=== PATIENT | male | born 1955 | race Caucasian/White ===

== ENCOUNTER 2019-11-19 10:44 | Emergency (ER) | payer MEDICARE, MEDICAID, SELFPAY ==
[2019-11-19 10:47] VITALS: PULSE 80; RESP 16; TEMP 36.4; O2SAT 95; BMI 26.6
--- NOTE | 2019-11-19 11:04 | CT_ITS ---
STUDY: CT ABDOMEN AND PELVIS WITHOUT CONTRAST REASON FOR EXAM: Male, 63 years old. DISTENTION, S/P PEG TUBE REPLACEMENT, PERSISTENT LEAK RADIATION DOSAGE (If Supplied By Facility): CTDIvol = ( 12.80 ) mGy, DLP = ( 662.89 ) mGycm TECHNIQUE: Transaxial images were obtained from the dome of the diaphragm to the symphysis pubis without oral contrast, and without intravenous contrast. Sagittal and coronal images were reconstructed. Individualized dose optimization techniques were used for this CT. COMPARISON: None. FINDINGS: There is evidence of a groundglass appearance in the right middle lobe as well as the lower lobes. Coronary artery calcification. Small amount of free intraperitoneal air most likely secondary to the recent insertion of the PEG tube. Normal liver. There is a solitary gallstone. Contracted gallbladder. Normal spleen. Normal pancreas. Normal bilateral adrenal glands. Normal right kidney. Multiple left intrarenal nonobstructive calculi. A PEG tube is seen entering the anterior portion of the body of the stomach. Increased markings are seen in the peritoneal fat adjacent to the entrance site of the PEG tube suggestive of a postprocedure changes most likely possible small amount of bleeding. Normal small intestine. Normal colon. The appendix is visualized and appears normal. There is diffuse atherosclerotic calcification of the abdominal aorta, without a demonstrated aneurysm. Normal inferior vena cava. Normal retroperitoneum. Diffuse bladder wall thickening. A 3 mm calculus is seen at the base of the bladder on the left side. This is suggestive of a recently passed left ureteral calculus. Normal abdominal wall. Dextroscoliosis CT/Abdomen/Pelvis without Cont IMPRESSION: Status post PEG insertion. Small amount of free air surrounding the liver in keeping with the recent placement of the PEG tube. Multiple left intrarenal calculi. 3 mm calculus at the base of the bladder on the left side suggestive of a recently passed left ureteral stone. Diffuse bladder wall thickening. Electronically Signed: Tonny Sim, at 12:13 EDT , Service support ,
--- NOTE | 2019-11-19 11:08 | ED.DCSUM_ITS ---
History of Present Illness Chief Complaint: Wound Informant: Patient, SNF Limited by: Dementia Onset: Yesterday Context: Gradual Onset Timing: Continuous Current Severity: Moderate Maximum Severity: Moderate Narrative: The patient is a 63-year-old male who is wheelchair-bound and nonverbal at baseline the presents to the emergency department with postoperative complication. Patient had leaking around his PEG site. He underwent PEG revision on the fourth of this month at [facility] by Dr. Rocha. He had persistent leaking from his old site, so he was taken back to surgery yesterday for revision. Overnight, he was still not tolerating his tube feeds and having increasing drainage from the site. He had a low-grade fever this morning of 100.5. The patient is currently in a prison. Staff brought him here for a second opinion. All of his care has been through the [facility] system. 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 Denies: Nausea, Vomiting, Diarrhea, Melena, Hematochezia Genitourinary: Denies: Dysuria, Hematuria, Frequency Musculoskeletal: Denies: Back pain, Extremity Pain Skin: Denies: Rash, Wounds Neurological: Denies: Headache, Weakness, Numbness Physical Exam Vital Signs/Narrative: Vital Signs Temp Pulse Resp Pulse Ox 11/19/19 10:47 97.5 F L 80 16 95 Inital Vital Signs reviewed: Yes General: Cachectic Head: Normocephalic Eyes: Perrl, EOMI ENT: Dry mucous membranes Neck: Supple Cardiovascular: Regular rate, Regular rhythm Respiratory: No distress, CTA bilaterally Abdomen: Soft, Tender. Negative for: Guarding, Rebound tenderness Extremities: Nontender Skin: Normal color Neurological: Alert Diagnostic/Tx/Re-eval Clinical Impression(s) from Imaging Studies Abdomen/Pelvis CT 11/19/19 11:04 IMPRESSION: Status post PEG insertion. Small amount of free air surrounding the liver in keeping with the recent placement of the PEG tube. Multiple left intrarenal calculi. 3 mm calculus at the base of the bladder on the left side suggestive of a recently passed left ureteral stone. Diffuse bladder wall thickening. Electronically Signed: Tonny Sim, at 12:13 EDT , Service support , Abnormal Lab Results 11/19/19 11/19/19 11:20 11:20 WBC 7.4 RBC 3.97 L Hgb 13.3 Hct 39.3 L MCV 99.0 H MCH 33.5 H MCHC 33.8 RDW Std Deviation 43.2 RDW Coeff of Keegan 11.9 Plt Count MPV 12.3 H Immature Gran % (Auto) 0.300 Neut % (Auto) 44.9 L Lymph % (Auto) 43.7 H Josephine % (Auto) 5.8 Eos % (Auto) 4.5 Baso % (Auto) 0.8 Absolute Neuts (auto) 3.3 Absolute Lymphs (auto) 3.23 Nucleated RBC % 0 Platelet Estimate MKD DEC Sodium 138 Potassium 5.2 H Chloride 106 Carbon Dioxide 24.0 Anion Gap 8 BUN 14 Creatinine 0.66 L Estim Creat Clear Calc 82.07 Est GFR (MDRD) Af Amer 155 Est GFR (MDRD) Non-Af 129 BUN/Creatinine Ratio 21.1 H Glucose 116 H Calcium 9.4 Total Bilirubin 0.50 AST 52 H ALT 27 Alkaline Phosphatase 86 Total Protein 8.4 H Albumin 3.2 Globulin 5.2 H Albumin/Globulin Ratio 0.6 L - Medical Decision Making Patient presents with drainage from his postoperative site. He has had a longstanding fistula because he just had his other PEG removed within the past week. There was a retention suture placed yesterday which seemed to help, but the nursing staff was worried about he is having persistent drainage. His abdomen was mildly tender. Given recent surgeries, I do feel metabolic work-up was appropriate. Labs were obtained were unremarkable. Patient underwent CT imaging which shows normal postoperative findings without an acute process. I did discuss this with his surgeon from [place], Dr. Rocha. At this point, as the patient had a longstanding PEG that was removed it is going take time for this to heal with secondary intention. His tube was actually flushed by nursing twice. There was no leakage. There was no high residual. He has follow-up in place. I do feel that he can safely be discharged. Impression 1. Postoperative wound check ED Disposition - Plan for ED Patient: Instructions: ED Wound Check Post Op Pain Referrals: Sergio Eng MD [Primary Care Provider] -
[2019-11-19 11:34] LABS: Absolute Lymphocyte Count 3.23 X10^3/uL (0.83-4.51); Absolute Neutrophil Count 3.3 X10^3/uL (2.0-7.7); Basophil# 0.06 X10^3/uL; Basophil% 0.8 % (0-1); Eosinophil# 0.33 X10^3/uL; Eosinophils% 4.5 % (0-5); Hematocrit 39.3 % (40-54); Hemoglobin 13.3 g/dL (13.0-16.5); Lymphocyte # 3.23 X10^3/ul (4.0); Lymphocyte % 43.7 % (19-41); Mean Corp Hgb Conc 33.8 g/dL (32-36); Mean Corpuscular Hgb 33.5 pg (27.0-32.0); Mean Platelet Vol. 12.3 fl (6.2-12.0); Monocyte# 0.43 X10^3/uL; Monocyte% 5.8 % (0-10); NRBC Flagged by Analyzer 0 % (0-5); Neutrophil # 3.32 X10^3/uL (2.7-7.7); Neutrophil % 44.9 % (47-70); POSITIVE COUNT YES; RBC Distribution Width CV 11.9 % (11.6-14.6); RBC Distribution Width SD 43.2 fl (35.1-43.9); Red Blood Count 3.97 M/mm3 (4.6-6.2); White Blood Count 7.4 K/mm3 (4.4-11.0)
[2019-11-19 12:11] LABS: Differential Indicated SCAN CRITERIA MET
[2019-11-19 12:12] LABS: Platelet Estimate MKD DEC (ADEQ)
[2019-11-19 12:16] LABS: ALB/GLOB Ratio 0.6 RATIO (0.9-2.4); AST(SGOT) 52 U/L (15-37); Alanine Aminotransfer ALT/SGPT 27 U/L (16-61); Albumin, Serum 3.2 g/dL (3.2-5.0); Alkaline Phosphatase 86 U/L (45-117); Anion Gap 8 (5-15); BUN 14 mg/dL (7-18); BUN/Creat Ratio 21.1 RATIO (10-20); Calcium,Total 9.4 mg/dL (8.5-10.1); Chloride 106 mmol/L (98-107); Creatinine, Serum 0.66 mg/dL (0.70-1.30); EST Glomerular Filtration Rate 129 mL/min (>60); Est Glom Filt Rate - Afr Amer 155 mL/min (>60); Estimated Creatinine Clearance 82.07 ml/min; Globulin 5.2 g/dL (2.2-4.2); Glucose 116 mg/dL (74-106); Potassium 5.2 mmol/L (3.5-5.1); Protein, Total 8.4 g/dL (6.4-8.2); Sodium Level 138 mmol/L (136-145)
[2019-11-19 12:48] VITALS: PULSE 76; RESP 14; O2SAT 95
--- NOTE | 2019-11-19 12:49 | ED.RN ---
G-TUBE FLUSHED WITH 90CC WATER. TO REFLUX NOTED AND NO DRAINAGE NOTED FROM OLD INSERTION SITE.
[2019-11-20 02:01] LABS: Platelet Count 17 K/mm3 (150-450)
[2019-11-20 12:11] LABS: Pathologist Review Reviewed
== END 2019-11-19 13:09 | disposition home or self-care (01) ==
PROVIDERS: Emergency Provider Emergency Medicine; PCP Family Medicine
DX: Z43.1 Encounter for attention to gastrostomy (principal); Z99.3 Dependence on wheelchair; G40.909 Epilepsy, unspecified, not intractable, without status epilepticus; G80.9 Cerebral palsy, unspecified; R64 Cachexia; F03.90 Unspecified dementia, unspecified severity, without behavioral disturbance, psychotic disturbance, mood disturbance, and anxiety; Z79.899 Other long term (current) drug therapy
CPT/HCPCS: 36415; 74176; 80053; 85025; 99282; A4216